=== PATIENT | female | born 2000 | race Caucasian/White ===

== ENCOUNTER 2023-03-15 15:00 | Outpatient (RCR) | payer BC, SELFPAY | END 2023-07-13 23:59 | disposition home or self-care (01) | PROVIDERS: PCP Pediatrics; Visit Provider Family Medicine | DX: M25.561 Pain in right knee (principal); M25.562 Pain in left knee; Z51.89 Encounter for other specified aftercare | CPT/HCPCS: 97110; 97140; 97162 ==

== ENCOUNTER 2024-07-14 14:32 | Outpatient (CLI) | payer BC, SELFPAY ==
--- OUTSIDE RECORDS SUMMARY | 2024-07-11 15:35 | XMS_ITS | Continuity of Care Document ---
Author Organization [place] [address] Phone Care Team Providers Care Quality Improvement Coordinator (Rn) Name Role Phone PCP, NO LOCAL Primary Care Provider Unavailabl e Care Teams Patient Care Team Team Status: Active Member Role Status Dates NO LOCAL PCP Primary Care Provider Active Visit Care Team Team Status: Inactive Member Role Status Dates NO LOCAL PCP Primary Care Provider Active Start: May 07, 2024 End: May 07, 2024 Linda Proctor Emergency Provider Active Start: O ctober 2023 End: May 07, 2024 Patient Care Team Team Status: Inactive Member Role Status Dates NO LOCAL PCP Primary Care Provider Active Start: June 07, 2024 End: June 07, 2024 Misha Tellez MD Emergency Provider Active Star t: June 07, 2024 End: June 07, 2024 Chief Complaint and Reason for Visit Chief Complaint Admit Date Neck Pain May 07, 2024 6 :31am needle poke at work June 07, 2024 8:59am Allergies, Adverse Reactions, Alerts No known allergies Social History Smoking Status Status Start Date End Date Date of Observa tion Never smoked tobacco (finding) June 07, 2024 9:04am Observation Status Observation Response Date of Response Patient Sex Male June 07 024 9:36am Assigned Sex Male 2000 Medications Medication Status Dose Units Route Directions Qty Days St art Date Stop Date End Date Instructions Methylpredni solone (Medrol (Darryl)) 4 mg tablets,dose pack Active 0 PO .COMPLEX 21 r 2023 11:00p m for 6 days Cyclobenzapr ine 10 mg tablet Active 10 MG PO THREE TIMES A DAY as needed for muscle spasm 15 r 2023 11:00p m Relevant Diagnostic Tests and/or Laboratory Data Laboratory Results Test Date/Time Result Interpretation Reference Range Result Comment Performing Site White Blood Count June 07, 2024 9:21am 6.9 10^3/UL 3.5-10.5 [facility] Main Lab [address] [facility] [address] Red Blood Count June 07, 2024 9:21am 4.5 10^6/UL Below low normal 4.7-6.1 [facility] Main Lab [address] [facility] [place] [address] Hemoglobin June 07, 2024 9:21am 15.2 G/DL 13.5-17.5 [facility] Main Lab [address] [facility] [place] [address] Hematocrit June 07, 2024 9:21am 44.2 % 37.0-50.0 [facility] Main Lab [address] [facility] [place] [address] Mean Corpuscular Volume June 07, 2024 9:21am 98.9 FL 84.0-99.0 [facility] Main Lab [address] [facility] [place] [address] Mean Corpuscular Hemoglobin June 07, 2024 9:21am 33.8 PG 27.0-34.0 [facility] Main Lab [address] [facility] [place] [address] Mean Corpuscular Hemoglobin Concent June 07, 2024 9:21am 34.4 G/DL 31-37 [facility] Main Lab [address] [facility] [address] RDW Coefficient of Variation June 07, 2024 9:21am 11.6 % Below low normal 13.0-16.0 [facility] Main La b [address] [facility] [address] Platelet Count June 07, 2024 9:21am 260 X10^3/UL 130-400 [facility] Main Lab [address] [facility] [place] [address] Mean Platelet Volume June 07, 2024 9:21am 9.2 FL 7.4-10.4 [facility] Main Lab [address] [facility] [address] Neutrophils (%) (Auto) June 07, 2024 9:21am 53.1 % 45.0-75.0 [facility] Main Lab [address] [facility] [address] Lymphocytes (%) (Auto) June 07, 2024 9:21am 38.2 % 16.0-52.0 [facility] Main Lab [address] [facility] [address] Monocytes (%) (Auto) June 07, 2024 9:21am 6.7 % 1.0-11.0 [facility] Lab [address] [facility] [address] Eosinophils (%) (Auto) June 07, 2024 9:21am 1.3 % 0.0-7.0 [facility] Main Lab [address] [facility] [address] Basophils (%) (Auto) June 07, 2024 9:21am 0.4 % 0.0-4.0 [facility] Lab [address] [place] [id number] Neutrophils # (Auto) June 07, 2024 9:21am 3.7 10^3/UL 1.5-7.9 [facility] Lab [address] [facility] [address] Immature Granulocytes % June 07, 2024 9:21am 0.3 % Above high normal 0.0-0.1 [facility] L [facility] [address] [facility] [address] Immature Granulocytes # June 07, 2024 9:21am 0.0 10^3/UL 0.0-0.1 [facility] Lab [address] [facility] [address] Lymphocytes # (Auto) June 07, 2024 9:21am 2.6 10^3/UL 0.6-5.5 [facility] Lab [address] [facility] [address] Monocytes # (Auto) June 07, 2024 9:21am 0.5 10^3/UL 0.4-1.2 [facility] [address] [facility] [address] Eosinophils # (Auto) June 07, 2024 9:21am 0.1 10^3/UL 0.0-2.0 [facility] [address] [facility] [address] Basophils # (Auto) June 07, 2024 9:21am 0.0 10^3/UL 0.0-0.4 [facility] [address] [facility] [address] Vital Signs Vital Reading Result Reference Range Collection Date/Time Height 66 [in_i] May 07, 024 5:45am Weight 58.00 kg May 07, 024 5:45am Body Temperature 97.4 [degF] 96.8-100.4 April 6:44am Heart Rate 89 /min 60-100 May 07, 024 5:45am Respiratory rate 18 /min 12-April 6:44am Oxygen saturation by Pulse oximetry 96 % 90-100 May 07, 2024 6 :44am BP Systolic 121 mm[Hg] May 07, 024 6:44am BP Diastolic 78 mm[Hg] May 07 024 6:44am BMI (Body Mass Index) 20.6 kg/m2 Octobe r 2023 5:45am Height 65 [in_i] June 07, 2024 9:04am Weight 58.96 kg June 07, 2024 9:04am Body Temperature 97.9 [degF] 96.8-100.4 June 072023 9:04am Heart Rate 99 /min 60-100 June 07, 2024 9:04am Respiratory rate 20 /min 12-June 072023 9:04am Oxygen saturation by Pulse oximetry 96 % 90-100 June 07, 2024 9:04am BP Systolic 132 mm[Hg] June 07, 2024 9:04am BP Diastolic 88 mm[Hg] June 07, 2024 9:04am BMI (Body Mass Index) 21.6 kg/m2 Novemb er 2023 9:04am Advance Directives Advance Directive Response Recorded Date/ Time Advance Directives Yes May 07, 2024 5:54am Insurance Providers Guarantor Nabor Pinto Address [address] [place] [address] Contact Info. Home Phone: Payer Policy Id Coverage Id Subscriber's Name Subscriber Id Effective Date Expiration Date LOWELL ARNOLD [id number] Nabor Ochoah [id number] Work Comp Pending [id number] Nabor Ochoah [id number] Encounters Encounter Location(s) Arrival/Admit Date Discharge/Depart Date Provider(s) [facility] May 07, 2024 5:31am May 07, 2024 6:45am null [facility] June 07, 2024 8:59am June 07, 2024 9:36am null Mental Status Observation Response Date Recorded Comprehension Ability Understands Concepts Octob er 2023 6:44am Comprehension Ability Understands Concepts Novem ketan 2023 9:33am Cognitive/Mental Status Assessments Plan of Treatment Future Tests Future scheduled test information is unavailable Pending Tests Test Name Ordered Date Scheduled Date Sodium Level June 07, 2024 9:21am Potassium Level June 07, 2024 9:21am Chloride Level June 07, 2024 9:21am Carbon Dioxide Level June 07, 2024 9:21am Anion Gap June 07, 2024 9:21am Blood Urea Nitrogen June 07, 2024 9:21am Creatinine June 07, 2024 9:21am Glomerular Filtration Rate Calc June 07, 024 9:21am BUN/Creatinine Ratio June 07, 2024 9:21am Glucose Level June 07, 2024 9:21am Calculated Osmolality June 07, 2024 9:21am Calcium Level June 07, 2024 9:21am Total Bilirubin June 07, 2024 9:21am Aspartate Amino Transf (AST/SGOT) June 07, 2024 9:21am Alanine Aminotransferase (ALT/SGPT) May 9:21am Total Protein June 07, 2024 9:21am Albumin June 07, 2024 9:21am Globulin June 07, 2024 9:21am Albumin/Globulin Ratio June 07, 2024 9:21a m Alkaline Phosphatase June 07, 2024 9:21am Hepatitis B Surface Antigen June 07, 2024 9:21am Hepatitis B Surface Antibody Index May 9:21am Hepatitis C Antibody June 07, 2024 9:21am HIV (1&2) Antibody June 07, 2024 9:21am Future Visits Future appointment information is unavailable Referrals to Other Providers Referral information is unavailable Future Procedures Procedure Name Ordered Date Scheduled Date Hepatitis B Surface Antibody June 07, 2024 9:12am June 07, 2024 9:21am Hepatitis B Surface Antigen June 07, 2024 9:12am June 07, 2024 9:21am Hepatitis C Virus Antibody June 07, 2024 9 :12am June 07, 2024 9:21am Future Medications Future medication information is unavailable Patient Instructions Instruction Admit Date Cervical Strain (ED) Acute Neck Pain (ED) May 07, 2024 6:31am Needle Stick Injuries (ED) May 8:59am Hospital Discharge Instructions Additional Instructions Follow-up with occupational health in 3 months for repeat labs.
--- NOTE | 2024-07-14 14:45 | CRLHL7_ITS ---
For Patients: As a result of the Century Cures Act, medical imaging exams and procedure reports are released immediately into your electronic medical record. You may view this report before your referring provider. If you have questions, please contact your health care provider. Indication: Abnormal uterine bleeding. Technique: Grayscale ultrasound of the pelvis was performed. Limited color Doppler was utilized. Transabdominal and transvaginal technique was performed. Comparison: None. Findings: Uterus: The uterus is normal in size, shape and echotexture. No intramural mass. The uterus measures 5.3 x 3.7 x 3.9 cm. Endometrium: The endometrial stripe is homogeneous and has a thickness of 9 mm. There is trace fluid within the endocervical canal. Right ovary: Normal right ovary containing multiple follicles. The right ovary measures 3.7 x 1.9 x 2.6 cm. Color Doppler blood flow to the right ovary is documented. Left ovary: Normal left ovary containing multiple follicles. The left ovary measures 4.0 x 1.8 x 2.9 cm. Color Doppler blood flow to the left ovary is documented. Cul-de-sac: No free intraperitoneal fluid. Impression: Normal ultrasound of the pelvis. Dictated by Elder Shah MD @ 07/15/2024 10:30:27 AM (Electronically Signed)
== END 2024-07-14 14:33 | disposition home or self-care (01) ==
PROVIDERS: PCP Family Medicine; Visit Provider Obstetrics & Gynecology
DX: N93.9 Abnormal uterine and vaginal bleeding, unspecified (principal)
CPT/HCPCS: 76830; 76856

== ENCOUNTER 2024-07-14 15:25 | Outpatient (CLI) | payer BC, SELFPAY | END 2024-07-14 15:26 | disposition home or self-care (01) | LOC: NFLDREF 07-15 07:38 | PROVIDERS: PCP Family Medicine; Referring Provider Family Medicine; Visit Provider Obstetrics & Gynecology | DX: N93.9 Abnormal uterine and vaginal bleeding, unspecified (principal) | CPT/HCPCS: 84443 ==